=== PATIENT | female | born 1975 | race Asian ===

== ENCOUNTER 2017-06-03 21:11 | Emergency (ER) | payer SELFPAY ==
[~2017-06-03] VITALS: Ht 165.1 cm; Wt 61.2 kg
[2017-06-03 21:31] VITALS: BP 137/86; Ht 165.1 cm; Wt 61.2 kg
== END 2017-06-03 21:34 | disposition left against medical advice (07) ==
LOC: ED 21:11
DX: Z53.1 Procedure and treatment not carried out because of patient's decision for reasons of belief and group pressure (principal)